=== PATIENT | female | born 1990 | race Caucasian/White ===

== ENCOUNTER 2023-12-21 06:57 | Inpatient (IN) | payer OTHER ==
[2023-12-21] MEDS: ELECTROLYTE-148 SOLN 1,000 ML IV SCH (08:00)
[2023-12-21 08:09] VITALS: BMI 26.6
[2023-12-21] MEDS ORDERED: OXYTOCIN 30 UNITS in 0.9% NS 30 UNIT/500 ML INFUS.BAG IVPB ONE (08:28)
[2023-12-21] MEDS: OXYTOCIN 30 UNITS in 0.9% NS 30 UNIT/500 ML INFUS.BAG IVPB SCH (10:40)
[2023-12-21 10:46] LABS: INR 0.97 (0.83-1.09); PROTHROMBIN TIME (PATIENT) 11.2 SEC (9.7-13.0)
[2023-12-21 10:47] LABS: BASO % 0.3 % (0-2.0); EOS % 0.2 % (0-4.5); HEMOGLOBIN 12.4 GM/dL (10.7-15.3); LYMPH % 17.7 % (8-40); MCH 31.5 pg (25.7-33.7); MCHC 34.3 g/dl (32.0-36.0); MEAN CELL VOLUME 91.9 fl (80-96); MEAN PLT VOLUME 8.9 fl (7.5-11.1); MONO % 6.2 % (3.8-10.2); NEUT % 75.6 % (42.8-82.8); PLATELET COUNT 197 10^3/uL (134-434); RBC 3.92 M/mm3 (3.60-5.2); WHITE BLOOD COUNT 8.7 K/mm3 (4.0-10.0)
[2023-12-21 10:49] LABS: ACTIVATED PTT 26.9 SECONDS (25.2-36.5)
[2023-12-21 11:08] LABS: CALCIUM 8.9 mg/dL (8.5-10.1)
[2023-12-21 11:09] LABS: BLOOD UREA NITROGEN 11.6 mg/dL (7-18)
[2023-12-21 11:12] LABS: CREATININE 0.5 mg/dL (0.55-1.3)
[2023-12-21 11:42] LABS: SYPHILIS W/ RPR CONF NON-REACTIVE (NONREACTIVE)
[2023-12-21 12:11] LABS: HIV INTERPRETATION NEGATIVE (NEGATIVE)
[2023-12-21] MEDS ORDERED: FENTANYL/BUPIVACAINE/NS/PF - PCEA - 50 ML DISP.SYRIN EP ONE (12:36)
[2023-12-21] MEDS ORDERED: BUPIVACAINE HCL/PF 0.25% (2.5MG/ML) 10 ML VIAL ONE (12:39)
[2023-12-21] MEDS ORDERED: LIDO 2%/EPI 1:200000 PRESRVFRE (20 ML SDVIAL) ONE ×2 (12:40→19:23)
[2023-12-21] MEDS: FENTANYL/BUPIVACAINE/NS/PF - PCEA - 50 ML DISP.SYRIN EP SCH ×2 (13:00→14:18)
[2023-12-21] MEDS ORDERED: NALOXONE HCL 0.4 MG/ML VIAL IVPUSH PRN (13:21)
[2023-12-21] MEDS ORDERED: LIDOCAINE HCL 1% PRESERVATIVE FREE - 30ML VIAL ONE (16:50)
[2023-12-21] MEDS ORDERED: OXYTOCIN 20 UNITS in 0.9% NS 20 UNIT/1,000 ML INFUS.BAG IV ONE (16:51)
[2023-12-21] MEDS: CITRIC ACID/SODIUM CITRATE 30 ML UNIT-DOSE CUP PO ONE (19:15)
[2023-12-21] MEDS ORDERED: FENTANYL CITRATE/PF 50 MCG/ML VIAL ONE (19:25)
[2023-12-21] MEDS ORDERED: IBUPROFEN 600 MG TABLET (FP) PO PRN (19:28)
[2023-12-21] MEDS ORDERED: ACETAMINOPHEN 325 MG TABLET (FP) PO PRN (19:28)
[2023-12-21] MEDS ORDERED: ONDANSETRON 4 MG/2 ML VIAL IVPUSH PRN (19:29)
[2023-12-21] MEDS ORDERED: ceFAZolin SODIUM 1 GM VIAL ONE (19:38)
[2023-12-21] MEDS ORDERED: AZITHROMYCIN IVPB 500 MG/250 ML BAG IVPB ONE (19:45)
[2023-12-21] MEDS ORDERED: OXYTOCIN 10 UNITS/ML VIAL ONE (19:46)
[2023-12-21] MEDS ORDERED: morphine SULFATE/PF 1 MG/2 ML (2cc Syringe - QUVA) ONE (19:49)
[2023-12-21] MEDS ORDERED: METHYLERGONOVINE MALEATE 0.2 MG/1 ML AMP IM PRN (20:42)
[2023-12-21] MEDS: OXYTOCIN 20 UNITS in 0.9% NS 20 UNIT/1,000 ML INFUS.BAG IV SCH (20:45)
[2023-12-21 21:07] LABS: CORD BASE EXCESS -2.1 mmol/L (0-2); CORD HCO3 23.5 mmHg (20-29); CORD HCO3 26.8 mmHg (20-29); CORD PCO2 42.9 mmHg (30-78); CORD PCO2 55.7 mmHg (30-78); CORD pH 7.356 (7.14-7.44)
[2023-12-21] MEDS ORDERED: ACETAMINOPHEN INJECTION 100 ML ONE (22:54)
[2023-12-21] MEDS: ACETAMINOPHEN 1000 MG/100 ML BAG IVPB PRN (23:00)
[2023-12-22] MEDS: CEFAZOLIN SODIUM 2 GM in DEXTROSE 5%-WATER 100 ML IVPB SCH (01:45)
[2023-12-22 07:23] LABS: BASO % 0.2 % (0-2.0); HEMATOCRIT 31.1 % (32.4-45.2); HEMOGLOBIN 10.6 GM/dL (10.7-15.3); LYMPH % 8.4 % (8-40); MCH 31.5 pg (25.7-33.7); MEAN CELL VOLUME 92.6 fl (80-96); MEAN PLT VOLUME 8.7 fl (7.5-11.1); MONO % 5.7 % (3.8-10.2); NEUT % 85.7 % (42.8-82.8); PLATELET COUNT 158 10^3/uL (134-434); RBC 3.36 M/mm3 (3.60-5.2); RDW 14.8 % (11.6-15.6); WHITE BLOOD COUNT 15.5 K/mm3 (4.0-10.0)
[2023-12-22] MEDS ORDERED: oxyCODONE HCL 5 MG TABLET PO PRN (08:42)
[2023-12-22] MEDS: ENOXAPARIN NA (PORCINE) 40 MG/0.4 ML DISP.SYRIN SQ SCH (09:12)
[2023-12-22] MEDS: IBUPROFEN 800 MG/8 ML IJ IVPB PRN (10:58)
[2023-12-22] MEDS: ACETAMINOPHEN 325 MG TABLET (FP) PO PRN (15:18)
[2023-12-22] MEDS: IBUPROFEN 600 MG TABLET (FP) PO PRN (20:34)
[2023-12-22] MEDS ORDERED: BISACODYL 10 MG SUPP.RECT RC PRN (20:42)
[2023-12-23] MEDS: oxyCODONE HCL 5 MG TABLET PO PRN (04:29)
[2023-12-23] MEDS: SIMETHICONE 80 MG TAB.CHEW (FP) PO PRN (15:46)
[2023-12-24 09:12] VITALS: BP 116/67; PULSE 80; RESP 17; TEMP 99.8
== END 2023-12-24 15:00 | disposition home or self-care (01) | DRG 788 ==
LOC: JDEL 06:57 → JLDR 07:35 → J3W 23:42 → UNDODISIN 12-22 14:00
PROVIDERS: ADMIT Obstetrics & Gynecology; ATTEND Obstetrics & Gynecology
PROC: 10D00Z1 Extraction of Products of Conception, Low, Open Approach (ICD-10-PCS; principal; 2023-12-21)
DX: O48.0 Post-term pregnancy (principal); Z3A.40 40 weeks gestation of pregnancy; O62.1 Secondary uterine inertia; O69.81X0 Labor and delivery complicated by cord around neck, without compression, not applicable or unspecified; Z37.0 Single live birth
CPT/HCPCS: 36415; 36600; 80048; 82803; 85025; 85610; 85730; 86780; 86850; 86900; 86901; 87389; 88307-TC; 94010; J0131